=== PATIENT | male | born 1980 | race Hispanic/Latino ===

== ENCOUNTER 2024-05-21 13:39 | Emergency (ER) | payer BC, OTHER | END 2024-05-21 14:56 | disposition home or self-care (01) | LOC: ERS 13:39 | DX: M54.6 Pain in thoracic spine (principal); Z76.0 Encounter for issue of repeat prescription; V89.2XXA Person injured in unspecified motor-vehicle accident, traffic, initial encounter | CPT/HCPCS: 99283 ==